=== PATIENT | female | born 1980 | race Caucasian/White ===

== ENCOUNTER 2025-01-14 23:57 | Emergency (ER) | payer OTHER ==
[~2025-01-14] VITALS: Ht 170.2 cm; Wt 78.0 kg
[2025-01-15 00:16] VITALS: O2SAT 100
[2025-01-15] MEDS ORDERED: DIPH25CA83 MT (01:18)
[2025-01-15 01:51] VITALS: BP 113/64; PULSE 59; RESP 15; TEMP 36.7; O2SAT 98
== END 2025-01-15 01:54 | disposition home or self-care (01) ==
LOC: ER 23:57
DX: F41.9 Anxiety disorder, unspecified (principal); R07.89 Other chest pain; Z59.00 Homelessness unspecified; Z79.899 Other long term (current) drug therapy
CPT/HCPCS: 93005; 99283